=== PATIENT | female | born 1975 | race Caucasian/White ===

== ENCOUNTER 2024-05-29 18:09 | Inpatient (IN) | payer BC ==
[2024-05-29] MEDS ORDERED: Sodium Chloride 0.9% 1000 ML 1,000 ML ONE ×3 (19:57→23:47)
[2024-05-29] MEDS ORDERED: TYLENOL 325 MG ONE (19:57)
[2024-05-29] MEDS ORDERED: Zofran 4 MG/2 ML VIAL ONE (19:57)
[2024-05-29] MEDS: TYLENOL 325 MG PO ONE (19:58)
[2024-05-29] MEDS: Zofran 4 MG/2 ML VIAL IV ONE (19:59)
[2024-05-29] MEDS: Sodium Chloride 0.9% 1000 ML 1,000 ML IV STA ×3 (19:59→23:53)
[2024-05-29 20:10] LABS: Absolute Neutrophil Ct (ANC) 9.19 x10^3/uL (1.56-6.13); BASOPHIL % 0.2 % (0.1-1.2); Basophil (Absolute #) 0.02 x10^3/uL (0.01-0.08); Eosinophil % 0.2 % (0.7-5.8); Eosinophil (Absolute #) 0.02 x10^3/uL (0.04-0.36); Hematocrit 40.7 % (34.1-44.9); Hemoglobin 14.1 g/dL (11.2-15.7); IMMATURE GRAN # 0.05 x10^3u/L (0.001-0.031); IMMATURE GRAN % 0.5 % (0.001-0.429); Lymphocytes % 5.5 % (19.3-51.7); Mean Cell Volume 85.9 fL (79.4-94.8); Mean Corpuscular Hemoglobin 29.7 pg (25.6-32.2); Mean Corpuscular Hgb Concent. 34.6 g/dL (32.2-35.5); Mean Platelet Volume 9.8 fL (9.4-12.3); Monocyte (Absolute #) 0.99 x10^3/uL (0.24-0.86); Monocytes % 9.1 % (4.7-12.5); Neutrophil % 84.5 % (34.0-71.1); Platelet Count 189 x10^3/uL (182-369); Red Blood Count 4.74 x10^6/uL (3.93-5.22); Red Cell Distribution Width 13.1 % (11.7-14.4); White Blood Count 10.9 x10^3/uL (3.98-10.04)
[2024-05-29 20:22] LABS: ALBUMIN 4.4 g/dL (3.5-5.0); ANION GAP 14.7 MEQ/L (5-15); BILIRUBIN,TOTAL 0.7 mg/dL (0.2-1.3); Calcium 9.3 mg/dL (8.4-10.2); Creatinine 1 0.79 mg/dL (0.52-1.04); EST GLOMERULAR FILTRATION RATE 91.6 ML/MIN; Potassium 4.1 mmol/L (3.5-5.1); Total Protein 7.5 g/dL (6.3-8.2)
[2024-05-29 20:47] LABS: INFLUENZA A NEGATIVE (NEGATIVE); INFLUENZA B NEGATIVE (NEGATIVE); RESPIRATORY SYNCTIAL VIRUS NEGATIVE (NEGATIVE); SARS-CoV-2 Xpert Express NEGATIVE (NEGATIVE)
[2024-05-29 22:30] LABS: Appearance Clear (Clear); Bacteria Rare /HPF (None Seen); Bilirubin Negative (Negative); Blood Small (Negative); Epithelial Cells Few /HPF (None Seen); Glucose, Urine >=1000 mg/dL (Negative); Hyaline Casts NONE SEEN /LPF (0-2); Ketones Negative (Negative); Leukocyte Esterase Small (Negative); Nitrite Negative (Negative); Protein,Urine Dip 30 (Negative); Specific Gravity >=1.030 (1.005-1.030); Urobilinogen 0.2 mg/dL (0.2); WBC 21-50 /HPF (0-5)
--- NOTE | 2024-05-29 22:42 | XRAY ---
CLINICAL HISTORY: abdominal pain COMPARISON: - TECHNIQUE: Multiple contiguous axial images were obtained from the level of diaphragm to the pubis symphysis. This study was acquired after the IV administration of iodinated contrast material, given the patients indications for the examination. If IV contrast material had not been administered, the likelihood of detecting abnormalities relevant to the patients condition would have been substantially decreased. Coronal and sagittal reformatted images were generated and reviewed to improve anatomic localization and optimize lesion detection. CT scan was performed according to ALARA (as low as reasonable achievable). FINDINGS: The visualized lung bases reveals old calcified granuloma in the left lower lobe of the lung ABDOMEN/PELVIS: The liver is normal in size and attenuation. No focal liver lesions are seen. There is no intra or extrahepatic biliary ductal dilatation. Hepatic vasculature is patent. The gallbladder is unremarkable. The spleen reveals tiny foci of calcification. The pancreas, and adrenal glands are unremarkable. The kidneys are normal in size. Patchy wedged shaped hypoenhancing areas are seen in the mid and lower pole of the right kidney on delayed images with perinephric fat stranding. There is no hydronephrosis. A calculus measuring around 0.3 is seen in the right kidney. The ureters are normal in caliber and no ureteral calculi are seen. The bladder is normal in contour. No evidence of focal or diffuse bowel wall thickening or evidence of bowel obstruction is seen. No adenopathy or fluid collections are seen. The aorta shows atherosclerotic calcification Degenerative changes in the visualized spine. No aggressive appearing osseous lesions are identified. IMPRESSION: 1. Right non-obstructive renal calculus. 2. Patchy wedged shaped hypoenhancing areas are seen in the mid and lower pole of the right kidney on delayed images with perinephric fat stranding- raises possibility of infective etiology.Urine Analysis is advised Electronically Signed by: Christopher Sam MD. (05/29/2024 22:38:25 EDT)
--- NOTE | 2024-05-29 23:30 | ERPHSYRPT ---
- History of Present Illness Time Seen by Provider: 05/29/24 19:20 Source: patient Exam Limitations: clinical condition Patient Subjective Stated Complaint: pt states that she had the flu 2 weeks ago. pt states she has been hot and cold. pt states that she has body aches Triage Nursing Assessment: pt ambulated into the er; pt is axo x4; c/o fever; pt states 10/10 body aches; pt denies N/V/D; no respiratory distress present; skin pink, hot, dry; tachycardic Timing/Duration: today Severity: mild Associated Symptoms: nausea, chills, malaise Allergies/Adverse Reactions: No Known Drug Allergies Allergy (Unverified 05/29/24 19:31) Hx Tetanus, Diphtheria Vaccination/Date Given: Yes Hx Influenza Vaccination/Date Given: No Hx Pneumococcal Vaccination/Date Given: No Travel Risk - International Travel Have you traveled outside of the country in past 3 weeks: No - Emerging Infectious Disease Are you exhibiting symptoms associated with any current EIDs: Yes Symptoms: Fever, Headaches/Body Aches/ - Review of Systems Constitutional: Fever, Chills, Fatigue, Malaise, Weakness Ears, Nose, & Throat: No Symptoms Respiratory: No Symptoms Cardiac: No Symptoms Abdominal/Gastrointestinal: No Symptoms Genitourinary Symptoms: No Symptoms - Past Medical History Pertinent Past Medical History: Yes Neurological History: Stroke ENT History: No Pertinent History Cardiac History: Hypertension Respiratory History: No Pertinent History Endocrine Medical History: Diabetes Type II Musculoskeletal History: Arthritis GI Medical History: GERD History: No Pertinent History Psycho-Social History: No Pertinent History Female Reproductive Disorders: No Pertinent History - Past Surgical History Past Surgical History: Yes Neuro Surgical History: No Pertinent History Cardiac: No Pertinent History Respiratory: No Pertinent History Gastrointestinal: No Pertinent History Genitourinary: No Pertinent History Musculoskeletal: Orthopedic Surgery Female Surgical History: Tubal Ligation Other Surgical History: maria victoria knee - Female History Hx Now: No - Social History Smoking Status: Current every day smoker How long have you smoked: 33 year Exposure to second hand smoke: Yes Drug Use: none - Social Determinants of Health Will the patient participate in the screening: Yes Do you worry about a steady place to live?: No Do you have any problems with any of the following?: No known problems In the past 12 months,have you had to go without utilities?: No Transportation Issues: No Has anyone in your support network made you feel unsafe?: No Have you or anyone in your house had to go w/o enough food: No - Nursing Vital Signs Nursing Vital Signs: Initial Vital Signs Pulse Rate 115 H 05/29/24 19:31 Blood Pressure 108/66 05/29/24 19:31 O2 Sat by Pulse Oximetry 97 05/29/24 19:31 Pain Scale Pain Intensity 7 - Physical Exam General Appearance: no apparent distress Eye Exam: PERRL/EOMI Ears, Nose, Throat Exam: normal ENT inspection Neck Exam: normal inspection Respiratory Exam: normal breath sounds Cardiovascular Exam: regular rate/rhythm Gastrointestinal/Abdomen Exam: soft, normal bowel sounds Back Exam: CVA tenderness SpO2: 96 Ordered Tests: Active Orders 24 hr Category Date Time Status Up Ad Cindy TOLERATED Activity 05/30/24 00:02 Ordered Code Status Order ROUTINE Care 05/30/24 00:02 Ordered POCT Glucose Check ACHS Care 05/30/24 00:[address] in Observation ROUTINE Care 05/30/24 00:02 Ordered Consistent Carbohydrate Diet 1800 Calorie Diet 05/30/24 Breakfast Ordered ABDOMEN AND PELVIS W CONTRAST [CT] Stat Exams 05/29/24 19:49 Completed CHEST 1 VIEW (PORTABLE) Stat Exams 05/29/24 19:49 Taken CBC AM.LAB Lab 05/30/24 04:00 Ordered CBC W DIFF Stat Lab 05/29/24 20:07 Completed CMP AM.LAB Lab 05/30/24 04:00 Ordered CMP Stat Lab 05/29/24 20:07 Completed CULTURE,URINE Stat Lab 05/29/24 22:21 Received UA W/RFX UR CULTURE Stat Lab 05/29/24 22:21 Completed Medication Summary Generic Name Dose Route Start Last Admin Trade Name Freq PRN Reason Stop Dose Admin Sodium Chloride 1,000 mls @ 999 mls/hr 05/29/24 23:31 05/29/24 23:53 Sodium Chloride 0.9% 1000 Ml IV 05/30/24 00:31 999 mls/hr .Q1H1M STA Administration Ceftriaxone Sodium 2 gm in 100 mls @ 200 mls/hr 05/29/24 23:37 05/29/24 23:52 Rocephin 2 Gm/100 Ml Nacl IV 05/30/24 00:06 200 ml/hr STAT ONE 200 mls/hr Administration Discontinued Medications Generic Name Dose Route Start Last Admin Trade Name Freq PRN Reason Stop Dose Admin Acetaminophen 975 mg 05/29/24 19:48 05/29/24 19:58 Acetaminophen 325 Mg Tablet PO 05/29/24 19:49 975 mg STAT ONE Administration Acetaminophen Confirm 05/29/24 19:57 Acetaminophen 325 Mg Tablet Administered 05/29/24 19:58 Dose 975 mg .ROUTE .STK-MED ONE Sodium Chloride 1,000 mls @ 999 mls/hr 05/29/24 19:48 05/29/24 21:45 Sodium Chloride 0.9% 1000 Ml IV 05/29/24 20:48 Infused .Q1H1M STA Infusion Sodium Chloride 1,000 mls @ 999 mls/hr 05/29/24 19:50 05/29/24 22:04 Sodium Chloride 0.9% 1000 Ml IV 05/29/24 20:50 Infused .Q1H1M STA Infusion Sodium Chloride Confirm 05/29/24 19:57 Sodium Chloride 0.9% 1000 Ml Administered 05/29/24 19:58 Dose 1,000 mls @ ud .ROUTE .STK-MED ONE Sodium Chloride Confirm 05/29/24 20:57 Sodium Chloride 0.9% 1000 Ml Administered 05/29/24 20:58 Dose 1,000 mls @ ud .ROUTE .STK-MED ONE Sodium Chloride Confirm 05/29/24 23:47 Sodium Chloride 0.9% 1000 Ml Administered 05/29/24 23:48 Dose 1,000 mls @ ud .ROUTE .STK-MED ONE Ceftriaxone Sodium Confirm 05/29/24 23:47 Rocephin 2 Gm/100 Ml Nacl Administered 05/29/24 23:48 Dose 2 gm in 100 mls @ ud IV .STK-MED ONE Ondansetron HCl 4 mg 05/29/24 19:48 05/29/24 19:59 Ondansetron Hcl 4 Mg/2 Ml Vial IV 05/29/24 19:49 4 mg STAT ONE Administration Ondansetron HCl Confirm 05/29/24 19:57 Ondansetron Hcl 4 Mg/2 Ml Vial Administered 05/29/24 19:58 Dose 4 mg .ROUTE .STK-MED ONE Lab/Rad Data: Laboratory Result Diagrams 05/29/24 20:07 05/29/24 20:07 Laboratory Results 05/29/24 05/29/24 05/29/24 Range/Units 22:21 20:07 20:07 WBC (3.98-10.04) x10^3/uL RBC (3.93-5.22) x10^6/uL Hgb (11.2-15.7) g/dL Hct (34.1-44.9) % MCV (79.4-94.8) fL MCH (25.6-32.2) pg MCHC (32.2-35.5) g/dL RDW (11.7-14.4) % Plt Count (182-369) x10^3/uL MPV (9.4-12.3) fL Gran % (34.0-71.1) % Immature Gran % (Auto) (0.001-0.429) % Nucleat RBC Rel Count (0.00-0.2) % Eos # (Auto) (0.04-0.36) x10^3/uL Immature Gran # (Auto) (0.001-0.031) x10^3u/L Absolute Lymphs (auto) (1.18-3.74) x10^3/uL Absolute Monos (auto) (0.24-0.86) x10^3/uL Absolute Nucleated RBC (0.00-0.012) x10^3u/L Lymphocytes % (19.3-51.7) % Monocytes % (4.7-12.5) % Eosinophils % (0.7-5.8) % Basophils % (0.1-1.2) % Absolute Granulocytes (1.56-6.13) x10^3/uL Basophils # (0.01-0.08) x10^3/uL Sodium 135 (135-145) mmol/L Potassium 4.1 (3.5-5.1) mmol/L Chloride 101 (98-107) mmol/L Carbon Dioxide 24 (22-30) mmol/L Anion Gap 14.7 (5-15) MEQ/L BUN 19 H (7-17) mg/dL Creatinine 0.79 (0.52-1.04) mg/dL Estimated GFR 91.6 ML/MIN Glucose 122 H (74-106) mg/dL Calcium 9.3 (8.4-10.2) mg/dL Total Bilirubin 0.70 (0.2-1.3) mg/dL AST 27 (14-36) U/L ALT 22 (0-35) U/L Alkaline Phosphatase 84 (38-126) U/L Serum Total Protein 7.5 (6.3-8.2) g/dL Albumin 4.4 (3.5-5.0) g/dL Urine Color Yellow (Yellow) Urine Appearance Clear (Clear) Urine pH 7.0 (4.6-8.0) Ur Specific [place] >=1.030 A (1.005-1.030) Urine Protein 30 (Negative) Urine Glucose (UA) >=1000 A (Negative) mg/dL Urine Ketones Negative (Negative) Urine Blood Small A (Negative) Urine Nitrite Negative (Negative) Urine Bilirubin Negative (Negative) Urine Urobilinogen 0.2 (0.2) mg/dL Ur Leukocyte Esterase Small A (Negative) U Hyaline Cast (Auto) NONE SEEN (0-2) /LPF Urine Microscopic RBC 11-20 A (0-5) /HPF Urine Microscopic WBC 21-50 A (0-5) /HPF Ur Epithelial Cells Few (None Seen) /HPF Urine Bacteria Rare A (None Seen) /HPF Urine Culture Reflexed YES (NO) Influenza Type A Ag NEGATIVE (NEGATIVE) Influenza Type B Ag NEGATIVE (NEGATIVE) RSV (PCR) NEGATIVE (NEGATIVE) SARS-CoV-2 (PCR) NEGATIVE (NEGATIVE) 05/29/24 Range/Units 20:07 WBC 10.9 H (3.98-10.04) x10^3/uL RBC 4.74 (3.93-5.22) x10^6/uL Hgb 14.1 (11.2-15.7) g/dL Hct 40.7 (34.1-44.9) % MCV 85.9 (79.4-94.8) fL MCH 29.7 (25.6-32.2) pg MCHC 34.6 (32.2-35.5) g/dL RDW 13.1 (11.7-14.4) % Plt Count 189 (182-369) x10^3/uL MPV 9.8 (9.4-12.3) fL Gran % 84.5 H (34.0-71.1) % Immature Gran % (Auto) 0.5 H (0.001-0.429) % Nucleat RBC Rel Count 0.0 (0.00-0.2) % Eos # (Auto) 0.02 L (0.04-0.36) x10^3/uL Immature Gran # (Auto) 0.05 H (0.001-0.031) x10^3u/L Absolute Lymphs (auto) 0.60 L (1.18-3.74) x10^3/uL Absolute Monos (auto) 0.99 H (0.24-0.86) x10^3/uL Absolute Nucleated RBC 0.00 (0.00-0.012) x10^3u/L Lymphocytes % 5.5 L (19.3-51.7) % Monocytes % 9.1 (4.7-12.5) % Eosinophils % 0.2 L (0.7-5.8) % Basophils % 0.2 (0.1-1.2) % Absolute Granulocytes 9.19 H (1.56-6.13) x10^3/uL Basophils # 0.02 (0.01-0.08) x10^3/uL Sodium (135-145) mmol/L Potassium (3.5-5.1) mmol/L Chloride (98-107) mmol/L Carbon Dioxide (22-30) mmol/L Anion Gap (5-15) MEQ/L BUN (7-17) mg/dL Creatinine (0.52-1.04) mg/dL Estimated GFR ML/MIN Glucose (74-106) mg/dL Calcium (8.4-10.2) mg/dL Total Bilirubin (0.2-1.3) mg/dL AST (14-36) U/L ALT (0-35) U/L Alkaline Phosphatase (38-126) U/L Serum Total Protein (6.3-8.2) g/dL Albumin (3.5-5.0) g/dL Urine Color (Yellow) Urine Appearance (Clear) Urine pH (4.6-8.0) Ur Specific [place] (1.005-1.030) Urine Protein (Negative) Urine Glucose (UA) (Negative) mg/dL Urine Ketones (Negative) Urine Blood (Negative) Urine Nitrite (Negative) Urine Bilirubin (Negative) Urine Urobilinogen (0.2) mg/dL Ur Leukocyte Esterase (Negative) U Hyaline Cast (Auto) (0-2) /LPF Urine Microscopic RBC (0-5) /HPF Urine Microscopic WBC (0-5) /HPF Ur Epithelial Cells (None Seen) /HPF Urine Bacteria (None Seen) /HPF Urine Culture Reflexed (NO) Influenza Type A Ag (NEGATIVE) Influenza Type B Ag (NEGATIVE) RSV (PCR) (NEGATIVE) SARS-CoV-2 (PCR) (NEGATIVE) - Progress Progress Note: Patient was seen and evaluated for fever chills malaise and generalized weakness that has been getting worse for the past several days she was noted to have a fever with tachycardia she was given IV fluids and labs were obtained she was in itially complaining of abdominal pain CT of the abdomen pelvis was obtained this revealed 05/29/24 23:15 IMPRESSION: 1. Right non-obstructive renal calculus. 2. Patchy wedged shaped hypoenhancing areas are seen in the mid and lower pole of the right kidney on delayed images with perinephric fat stranding- raises possibility of infective etiology.Urine Analysis is advised Patient was updated with the results she was informed of the need for admission she is agreeable she will be given 2 g Rocephin for treatment of an early pyelonephritis and sirs Medical Desision Making - Independent Historian Additional History obtained from: Family - Discussion of managment Care discussed with:: hospitalist Agreed on:: decision to admit Will see patient: in hospital - Departure Departure Disposition: Observation Clinical Impression: Fever, SIRS (systemic inflammatory response syndrome), Pyelonephritis Condition: Stable Critical Care Time: Yes Critical Care Time(excluding separately billable procedures): Critical 30-74 mins Referrals: ELSA DE LEON PA [Primary Care Provider] - Follow up/PCP as directed
[2024-05-29] MEDS ORDERED: ROCEPHIN 2 GM/100 ML NACL 2 GM/100 ML IVPB IV ONE (23:47)
[2024-05-29] MEDS: ROCEPHIN 2 GM/100 ML NACL 2 GM/100 ML IVPB IV ONE (23:52)
[2024-05-30] MEDS ORDERED: HUMULIN R SQ PRN (00:02)
[2024-05-30] MEDS ORDERED: MORPHINE SULFATE 4 MG INJ ONE (00:38)
[2024-05-30] MEDS: MORPHINE SULFATE 4 MG INJ IV ONE (00:41)
[2024-05-30] MEDS: Sodium Chloride 0.9% 1000 ML 1,000 ML IV SCH (00:41)
--- NOTE | 2024-05-30 01:16 | PCM.HP ---
History of Present Illness - Chief Complaint Chief Complaint: acute pyelonephritis Date: 05/29/24 History of Present Illness: Ms. FRANCO is a 49 year old female with a past medical history significant for hypertension, diabetes and recent bout with influenza A who presents to the hospital with complaints of fever, chills and body aches with some persistent R sided back pain. She had been diagnosed with a UTI and treated with antibiotics a week ago. Initial labs were notable for an elevated WBC count of 10.9k. She was negative for flu/COVID/RSV but did have a CT scan chest/abd that demonstrated R pyelonephritis. No chest pain or shortness of breath. No nausea, vomiting or diarrhea. No dysuria, hematuria or urgency. She has been recommended for admission and is seen via telehealth where she is resting in bed, in no apparent distress. - Review of Systems Constitutional: Fever, Chills Eyes: No Vision Changes Ears, Nose, & Throat: No Sinus Drainage Respiratory: No Cough, No Orthopnea, No Short Of Breath Cardiac: No Chest Pain, No Edema, No Palpitations Abdominal/Gastrointestinal: Abdominal Pain, No Nausea, No Vomiting, No Diarrhea Genitourinary Symptoms: No Dysuria, No Frequency, No Hematuria Musculoskeletal: Arthralgias, Myalgias Skin: No Rash Neurological: No Headache Psychological: No Suicidal Ideations Endocrine: No Polyuria, No Polydipsia Medications & Allergies Allergies/Adverse Reactions: Allergies Allergy/AdvReac Type Severity Reaction Status Date / Time No Known Drug Allergies Allergy Unverified 05/29/24 19:31 - Past Medical History Past Medical History: Yes Neurological History: Stroke ENT History: No Pertinent History Cardiac History: Hypertension Respiratory History: No Pertinent History Endocrine Medical History: Diabetes Type II Musculoskelatal History: Arthritis GI Medical History: GERD History: No Pertinent History Pyscho-Social History: No Pertinent History Reproductive Disorders: No Pertinent History - Female History Are you now?: No - Past Surgical History Past Surgical History: Yes Neuro Surgical History: No Pertinent History Cardiac History: No Pertinent History Respiratory Surgery: No Pertinent History GI Surgical History: No Pertinent History Genitourinary Surgical Hx: No Pertinent History Musculskeletal Surgical Hx: Orthopedic Surgery Female Surgical History: Tubal Ligation Other Surgical History: maria victoria knee - Social History Smoking Status: Current every day smoker How long have you smoked: 33 year Exposure to second hand smoke: Yes Alcohol: None Drug Use: none - Social Determinants of Health Will the patient participate in the screening: Yes Do you worry about a steady place to live?: No Do you have any problems with any of the following?: No known problems In the past 12 months,have you had to go without utilities?: No Have you or anyone in your house had to go without enough: No Transportation Issues: No Has anyone in your support network made you feel unsafe?: No - Physical Exam Vital Signs: Vital Signs - 24 hr Temp Pulse Resp BP BP Pulse Ox 05/30/24 01:00 87 105/74 99 05/30/24 00:50 88 109/76 99 05/30/24 00:30 92 H 108/81 98 05/30/24 00:06 96 05/30/24 00:00 89 97/66 97 05/29/24 23:30 89 95/68 98 05/29/24 23:00 89 119/72 97 05/29/24 22:30 93 H 103/70 98 05/29/24 22:10 90 106/69 96 05/29/24 22:00 107 H 81/49 96 05/29/24 21:30 105 H 81/46 96 05/29/24 21:26 95 05/29/24 21:01 107 H 95 05/29/24 20:30 102 H 88/52 97 05/29/24 20:00 105 H 104/64 96 05/29/24 19:33 100.4 F 118 H 18 108/66 95 05/29/24 19:31 115 H 108/66 97 General Appearance: no apparent distress Neurologic Exam: cooperative Ears, Nose, Throat Exam: dry mucous membranes Neck Exam: supple Respiratory Exam: No respiratory distress Cardiovascular Exam: regular rate/rhythm Gastrointestinal/Abdomen Exam: soft Extremity Exam: No pedal edema, No swelling Skin Exam: normal color, No rash Results - Labs Lab/Micro Results: Lab Results-Last 24 Hours 05/29/24 05/29/24 05/29/24 Range/Units 20:07 20:07 20:07 WBC 10.9 H (3.98-10.04) x10^3/uL RBC 4.74 (3.93-5.22) x10^6/uL Hgb 14.1 (11.2-15.7) g/dL Hct 40.7 (34.1-44.9) % MCV 85.9 (79.4-94.8) fL MCH 29.7 (25.6-32.2) pg MCHC 34.6 (32.2-35.5) g/dL RDW 13.1 (11.7-14.4) % Plt Count 189 (182-369) x10^3/uL MPV 9.8 (9.4-12.3) fL Gran % 84.5 H (34.0-71.1) % Immature Gran % (Auto) 0.5 H (0.001-0.429) % Nucleat RBC Rel Count 0.0 (0.00-0.2) % Eos # (Auto) 0.02 L (0.04-0.36) x10^3/uL Immature Gran # (Auto) 0.05 H (0.001-0.031) x10^3u/L Absolute Lymphs (auto) 0.60 L (1.18-3.74) x10^3/uL Absolute Monos (auto) 0.99 H (0.24-0.86) x10^3/uL Absolute Nucleated RBC 0.00 (0.00-0.012) x10^3u/L Lymphocytes % 5.5 L (19.3-51.7) % Monocytes % 9.1 (4.7-12.5) % Eosinophils % 0.2 L (0.7-5.8) % Basophils % 0.2 (0.1-1.2) % Absolute Granulocytes 9.19 H (1.56-6.13) x10^3/uL Basophils # 0.02 (0.01-0.08) x10^3/uL Sodium 135 (135-145) mmol/L Potassium 4.1 (3.5-5.1) mmol/L Chloride 101 (98-107) mmol/L Carbon Dioxide 24 (22-30) mmol/L Anion Gap 14.7 (5-15) MEQ/L BUN 19 H (7-17) mg/dL Creatinine 0.79 (0.52-1.04) mg/dL Estimated GFR 91.6 ML/MIN Glucose 122 H (74-106) mg/dL Calcium 9.3 (8.4-10.2) mg/dL Total Bilirubin 0.70 (0.2-1.3) mg/dL AST 27 (14-36) U/L ALT 22 (0-35) U/L Alkaline Phosphatase 84 (38-126) U/L Serum Total Protein 7.5 (6.3-8.2) g/dL Albumin 4.4 (3.5-5.0) g/dL Urine Color (Yellow) Urine Appearance (Clear) Urine pH (4.6-8.0) Ur Specific [place] (1.005-1.030) Urine Protein (Negative) Urine Glucose (UA) (Negative) mg/dL Urine Ketones (Negative) Urine Blood (Negative) Urine Nitrite (Negative) Urine Bilirubin (Negative) Urine Urobilinogen (0.2) mg/dL Ur Leukocyte Esterase (Negative) U Hyaline Cast (Auto) (0-2) /LPF Urine Microscopic RBC (0-5) /HPF Urine Microscopic WBC (0-5) /HPF Ur Epithelial Cells (None Seen) /HPF Urine Bacteria (None Seen) /HPF Urine Culture Reflexed (NO) Influenza Type A Ag NEGATIVE (NEGATIVE) Influenza Type B Ag NEGATIVE (NEGATIVE) RSV (PCR) NEGATIVE (NEGATIVE) SARS-CoV-2 (PCR) NEGATIVE (NEGATIVE) 05/29/24 Range/Units 22:21 WBC (3.98-10.04) x10^3/uL RBC (3.93-5.22) x10^6/uL Hgb (11.2-15.7) g/dL Hct (34.1-44.9) % MCV (79.4-94.8) fL MCH (25.6-32.2) pg MCHC (32.2-35.5) g/dL RDW (11.7-14.4) % Plt Count (182-369) x10^3/uL MPV (9.4-12.3) fL Gran % (34.0-71.1) % Immature Gran % (Auto) (0.001-0.429) % Nucleat RBC Rel Count (0.00-0.2) % Eos # (Auto) (0.04-0.36) x10^3/uL Immature Gran # (Auto) (0.001-0.031) x10^3u/L Absolute Lymphs (auto) (1.18-3.74) x10^3/uL Absolute Monos (auto) (0.24-0.86) x10^3/uL Absolute Nucleated RBC (0.00-0.012) x10^3u/L Lymphocytes % (19.3-51.7) % Monocytes % (4.7-12.5) % Eosinophils % (0.7-5.8) % Basophils % (0.1-1.2) % Absolute Granulocytes (1.56-6.13) x10^3/uL Basophils # (0.01-0.08) x10^3/uL Sodium (135-145) mmol/L Potassium (3.5-5.1) mmol/L Chloride (98-107) mmol/L Carbon Dioxide (22-30) mmol/L Anion Gap (5-15) MEQ/L BUN (7-17) mg/dL Creatinine (0.52-1.04) mg/dL Estimated GFR ML/MIN Glucose (74-106) mg/dL Calcium (8.4-10.2) mg/dL Total Bilirubin (0.2-1.3) mg/dL AST (14-36) U/L ALT (0-35) U/L Alkaline Phosphatase (38-126) U/L Serum Total Protein (6.3-8.2) g/dL Albumin (3.5-5.0) g/dL Urine Color Yellow (Yellow) Urine Appearance Clear (Clear) Urine pH 7.0 (4.6-8.0) Ur Specific [place] >=1.030 A (1.005-1.030) Urine Protein 30 (Negative) Urine Glucose (UA) >=1000 A (Negative) mg/dL Urine Ketones Negative (Negative) Urine Blood Small A (Negative) Urine Nitrite Negative (Negative) Urine Bilirubin Negative (Negative) Urine Urobilinogen 0.2 (0.2) mg/dL Ur Leukocyte Esterase Small A (Negative) U Hyaline Cast (Auto) NONE SEEN (0-2) /LPF Urine Microscopic RBC 11-20 A (0-5) /HPF Urine Microscopic WBC 21-50 A (0-5) /HPF Ur Epithelial Cells Few (None Seen) /HPF Urine Bacteria Rare A (None Seen) /HPF Urine Culture Reflexed YES (NO) Influenza Type A Ag (NEGATIVE) Influenza Type B Ag (NEGATIVE) RSV (PCR) (NEGATIVE) SARS-CoV-2 (PCR) (NEGATIVE) - Radiology Impressions Radiology Exams & Impressions: Radiology Procedures Category Date Time Status ABDOMEN AND PELVIS W CONTRAST [CT] Stat Exams 05/29/24 19:49 Completed CHEST 1 VIEW (PORTABLE) Stat Exams 05/29/24 19:49 Taken Assessment/Plan (1) Pyelonephritis Current Visit: Yes Status: Acute Assessment & Plan: Abdominal pain with R sided pyelonephritis on CT scan 1. Admit to hospital 2. IVFs 3. Empiric antibiotics, f/u culture 4. DVT/GI prophylaxis 5. Pain control 6. Follow I/Os 7. Watch electrolytes, kidney function closely Code(s): N12 - TUBULO-INTERSTITIAL NEPHRITIS, NOT SPCF ACUTE OR CHRONIC (2) Type 2 diabetes mellitus with diabetic chronic kidney disease Current Visit: Yes Status: Acute Assessment & Plan: Diabetes with some proteinuria 1. ADA diet with FSBS qAC/HS 2. Check UPC 3. Monitor blood sugars Code(s): E11.22 - TYPE 2 DIABETES MELLITUS W DIABETIC CHRONIC KIDNEY DISEASE (3) Hypertensive chronic kidney disease with stage 1 through stage 4 chronic kid sheri disease, or unspecified chronic kidney disease Current Visit: Yes Status: Acute Assessment & Plan: Blood pressure under reasonable control 1. Continue bp meds 2. Low Na diet 3. Monitor blood pressure readings Code(s): I12.9 - HYPERTENSIVE CHRONIC KIDNEY DISEASE W STG 1-4/UNSP CHR KDNY (4) Influenza Current Visit: Yes Status: Acute Assessment & Plan: Recent bout with influenza, currently negative 1. Duonebs prn 2. Monitor O2 sats Code(s): J11.1 - FLU DUE TO UNIDENTIFIED INFLUENZA VIRUS W OTH RESP MANIFEST Telemedicine Encounter - Telemedicine Encounter Telemedicine Encounter: "The entirety of this encounter was performed via Telemedicine" This visit was performed using real-time audio and video connection between my location and thepatients locationwith the assistance of a surrogateat the patients location. Written or verbal consent was obtained from the patient/guardian to perform this visit usingsynchrWanna Migratetelemedicine technology. Any patient questions regarding the telemedicine interaction were answered.
[2024-05-30] MEDS: MORPHINE SULFATE 2 MG INJ IV PRN (01:55)
[2024-05-30] MEDS: TYLENOL 325 MG PO PRN (03:56)
[2024-05-30 05:27] LABS: Absolute Neutrophil Ct (ANC) 8.91 x10^3/uL (1.56-6.13); BASOPHIL % 0.1 % (0.1-1.2); Basophil (Absolute #) 0.01 x10^3/uL (0.01-0.08); Eosinophil % 0.2 % (0.7-5.8); Eosinophil (Absolute #) 0.02 x10^3/uL (0.04-0.36); Hematocrit 35.9 % (34.1-44.9); Hemoglobin 12.1 g/dL (11.2-15.7); IMMATURE GRAN # 0.08 x10^3u/L (0.001-0.031); IMMATURE GRAN % 0.7 % (0.001-0.429); Lymphocyte (Absolute #) 0.62 x10^3/uL (1.18-3.74); Lymphocytes % 5.8 % (19.3-51.7); Mean Cell Volume 88.2 fL (79.4-94.8); Mean Corpuscular Hemoglobin 29.7 pg (25.6-32.2); Mean Corpuscular Hgb Concent. 33.7 g/dL (32.2-35.5); Mean Platelet Volume 10.1 fL (9.4-12.3); Monocyte (Absolute #) 1.07 x10^3/uL (0.24-0.86); Neutrophil % 83.2 % (34.0-71.1); Platelet Count 160 x10^3/uL (182-369); Red Blood Count 4.07 x10^6/uL (3.93-5.22); Red Cell Distribution Width 13.6 % (11.7-14.4); White Blood Count 10.7 x10^3/uL (3.98-10.04)
[2024-05-30 05:48] LABS: ALBUMIN 3.4 g/dL (3.5-5.0); ANION GAP 12.7 MEQ/L (5-15); BILIRUBIN,TOTAL 0.7 mg/dL (0.2-1.3); Calcium 8.3 mg/dL (8.4-10.2); Creatinine 1 0.75 mg/dL (0.52-1.04); EST GLOMERULAR FILTRATION RATE 97.5 ML/MIN; Potassium 3.6 mmol/L (3.5-5.1)
--- NOTE | 2024-05-30 08:43 | XRAY ---
Indication: Fever. Comparison: None Portable chest demonstrates normal heart and lungs. Bony thorax intact with osteopenia and mild degenerative changes. No acute findings.
[2024-05-30] MEDS: HEPARIN 5000 UNITS/0.5 ML (HIGH RISK MED) SQ SCH (10:04)
[2024-05-30] MEDS: Protonix 40MG Tablet PO SCH (10:04)
--- NOTE | 2024-05-30 13:09 | PCM.NOTE ---
Date and Time: 05/30/24 1304 Subjective Assessment: 05/30/24 Ms. De Paz is a 49-year-old female with a medical history of hypertension, diabetes, and a recent bout of influenza A, who presented to the hospital with complaints of fever, chills, body aches, and persistent right-sided back pain. She had been diagnosed with a UTI and treated with antibiotics a week prior. Initial labs revealed an elevated WBC count of 10.9k. She tested negative for flu, COVID, and RSV, but a CT scan of the chest and abdomen showed right-sided pyelonephritis. She denied chest pain, shortness of breath, nausea, vomiting, diarrhea, dysuria, hematuria, or urgency. Today she is resting in bed, in no apparent distress. She reported feeling unwell with a temperature of 103.7F at 0357. Her WBC count had slightly improved to 10.7k, but she continued to experience right-sided back pain. She was continued on Rocephin for acute pyelonephritis. - Review of Systems Constitutional: Fever, Fatigue, Malaise, No Chills Eyes: No Symptoms Ears, Nose, & Throat: No Symptoms Respiratory: No Cough, No Short Of Breath Cardiac: No Chest Pain, No Edema, No Syncope Abdominal/Gastrointestinal: No Abdominal Pain, No Nausea, No Vomiting, No Diarrhea Genitourinary Symptoms: No Dysuria Musculoskeletal: Back Pain, No Neck Pain Skin: No Rash Neurological: No Dizziness, No Focal Weakness, No Sensory Changes Psychological: No Symptoms Endocrine: No Symptoms Hematologic/Lymphatic: No Symptoms Immunological/Allergic: No Symptoms Objective Exam General Appearance: no apparent distress, alert Neurologic Exam: alert, oriented x 3, cooperative, normal mood/affect, nml cerebellar function, sensation nml, No motor deficits Skin Exam: normal color, warm, dry Eye Exam: PERRL, EOMI, eyes nml inspection Ears, Nose, Throat Exam: normal ENT inspection, pharynx normal, moist mucous membranes Neck Exam: normal inspection, non-tender, supple, full range of motion Respiratory Exam: normal breath sounds, lungs clear, No respiratory distress Cardiovascular Exam: regular rate/rhythm, normal heart sounds Gastrointestinal/Abdomen Exam: soft, No tenderness, No mass Extremity Exam: normal inspection, normal range of motion Back Exam: normal inspection, normal range of motion, No CVA tenderness, No vertebral tenderness Pelvic Exam: deferred Rectal Exam: deferred Objective Data Vital Signs: Vital Signs - 24 hr Temp Pulse Resp BP BP Pulse Ox 05/30/24 11:32 97.8 F 82 20 101/70 95 05/30/24 08:17 98.3 F 99 H 22 79/49 93 L 05/30/24 06:29 99.7 F 05/30/24 03:57 103.7 F 119 H 20 126/69 97 05/30/24 01:36 98.2 F 90 18 102/59 98 05/30/24 01:00 87 105/74 99 05/30/24 00:50 88 109/76 99 05/30/24 00:30 92 H 108/81 98 05/30/24 00:06 96 05/30/24 00:00 89 97/66 97 05/29/24 23:30 89 95/68 98 05/29/24 23:00 89 119/72 97 05/29/24 22:30 93 H 103/70 98 05/29/24 22:10 90 106/69 96 05/29/24 22:00 107 H 81/49 96 05/29/24 21:30 105 H 81/46 96 05/29/24 21:26 95 05/29/24 21:01 107 H 95 05/29/24 20:30 102 H 88/52 97 05/29/24 20:00 105 H 104/64 96 05/29/24 19:33 100.4 F 118 H 18 108/66 95 05/29/24 19:31 115 H 108/66 97 Pain Assessment - Last Documented Pain Intensity 8 Pain Scale Used 0-10 Pain Scale Intake and Output: Intake & Output 05/28/24 05/29/24 05/30/24 05/31/24 10:59 11:59 11:59 11:59 Intake Total 120 120 Output Total 1200 400 Balance -1080 -280 Weight 62.8 kg Lab Results: Lab Results-Last 24 Hours 05/29/24 05/29/24 05/29/24 Range/Units 20:07 20:07 20:07 WBC 10.9 H (3.98-10.04) x10^3/uL RBC 4.74 (3.93-5.22) x10^6/uL Hgb 14.1 (11.2-15.7) g/dL Hct 40.7 (34.1-44.9) % MCV 85.9 (79.4-94.8) fL MCH 29.7 (25.6-32.2) pg MCHC 34.6 (32.2-35.5) g/dL RDW 13.1 (11.7-14.4) % Plt Count 189 (182-369) x10^3/uL MPV 9.8 (9.4-12.3) fL Gran % 84.5 H (34.0-71.1) % Immature Gran % (Auto) 0.5 H (0.001-0.429) % Nucleat RBC Rel Count 0.0 (0.00-0.2) % Eos # (Auto) 0.02 L (0.04-0.36) x10^3/uL Immature Gran # (Auto) 0.05 H (0.001-0.031) x10^3u/L Absolute Lymphs (auto) 0.60 L (1.18-3.74) x10^3/uL Absolute Monos (auto) 0.99 H (0.24-0.86) x10^3/uL Absolute Nucleated RBC 0.00 (0.00-0.012) x10^3u/L Lymphocytes % 5.5 L (19.3-51.7) % Monocytes % 9.1 (4.7-12.5) % Eosinophils % 0.2 L (0.7-5.8) % Basophils % 0.2 (0.1-1.2) % Absolute Granulocytes 9.19 H (1.56-6.13) x10^3/uL Basophils # 0.02 (0.01-0.08) x10^3/uL Sodium 135 (135-145) mmol/L Potassium 4.1 (3.5-5.1) mmol/L Chloride 101 (98-107) mmol/L Carbon Dioxide 24 (22-30) mmol/L Anion Gap 14.7 (5-15) MEQ/L BUN 19 H (7-17) mg/dL Creatinine 0.79 (0.52-1.04) mg/dL Estimated GFR 91.6 ML/MIN Glucose 122 H (74-106) mg/dL POC Glucometer (74 to 106) mg/dL Calcium 9.3 (8.4-10.2) mg/dL Total Bilirubin 0.70 (0.2-1.3) mg/dL AST 27 (14-36) U/L ALT 22 (0-35) U/L Alkaline Phosphatase 84 (38-126) U/L Serum Total Protein 7.5 (6.3-8.2) g/dL Albumin 4.4 (3.5-5.0) g/dL Urine Color (Yellow) Urine Appearance (Clear) Urine pH (4.6-8.0) Ur Specific [place] (1.005-1.030) Urine Protein (Negative) Urine Glucose (UA) (Negative) mg/dL Urine Ketones (Negative) Urine Blood (Negative) Urine Nitrite (Negative) Urine Bilirubin (Negative) Urine Urobilinogen (0.2) mg/dL Ur Leukocyte Esterase (Negative) U Hyaline Cast (Auto) (0-2) /LPF Urine Microscopic RBC (0-5) /HPF Urine Microscopic WBC (0-5) /HPF Ur Epithelial Cells (None Seen) /HPF Urine Bacteria (None Seen) /HPF Urine Culture Reflexed (NO) Influenza Type A Ag NEGATIVE (NEGATIVE) Influenza Type B Ag NEGATIVE (NEGATIVE) RSV (PCR) NEGATIVE (NEGATIVE) SARS-CoV-2 (PCR) NEGATIVE (NEGATIVE) 05/29/24 05/30/24 05/30/24 Range/Units 22:21 05:19 05:19 WBC 10.7 H (3.98-10.04) x10^3/uL RBC 4.07 (3.93-5.22) x10^6/uL Hgb 12.1 (11.2-15.7) g/dL Hct 35.9 (34.1-44.9) % MCV 88.2 (79.4-94.8) fL MCH 29.7 (25.6-32.2) pg MCHC 33.7 (32.2-35.5) g/dL RDW 13.6 (11.7-14.4) % Plt Count 160 L (182-369) x10^3/uL MPV 10.1 (9.4-12.3) fL Gran % 83.2 H (34.0-71.1) % Immature Gran % (Auto) 0.7 H (0.001-0.429) % Nucleat RBC Rel Count 0.0 (0.00-0.2) % Eos # (Auto) 0.02 L (0.04-0.36) x10^3/uL Immature Gran # (Auto) 0.08 H (0.001-0.031) x10^3u/L Absolute Lymphs (auto) 0.62 L (1.18-3.74) x10^3/uL Absolute Monos (auto) 1.07 H (0.24-0.86) x10^3/uL Absolute Nucleated RBC 0.00 (0.00-0.012) x10^3u/L Lymphocytes % 5.8 L (19.3-51.7) % Monocytes % 10.0 (4.7-12.5) % Eosinophils % 0.2 L (0.7-5.8) % Basophils % 0.1 (0.1-1.2) % Absolute Granulocytes 8.91 H (1.56-6.13) x10^3/uL Basophils # 0.01 (0.01-0.08) x10^3/uL Sodium 137 (135-145) mmol/L Potassium 3.6 (3.5-5.1) mmol/L Chloride 106 (98-107) mmol/L Carbon Dioxide 22 (22-30) mmol/L Anion Gap 12.7 (5-15) MEQ/L BUN 12 (7-17) mg/dL Creatinine 0.75 (0.52-1.04) mg/dL Estimated GFR 97.5 ML/MIN Glucose 91 (74-106) mg/dL POC Glucometer (74 to 106) mg/dL Calcium 8.3 L (8.4-10.2) mg/dL Total Bilirubin 0.70 (0.2-1.3) mg/dL AST 78 H (14-36) U/L ALT 40 H (0-35) U/L Alkaline Phosphatase 145 H (38-126) U/L Serum Total Protein 6.0 L (6.3-8.2) g/dL Albumin 3.4 L (3.5-5.0) g/dL Urine Color Yellow (Yellow) Urine Appearance Clear (Clear) Urine pH 7.0 (4.6-8.0) Ur Specific [place] >=1.030 A (1.005-1.030) Urine Protein 30 (Negative) Urine Glucose (UA) >=1000 A (Negative) mg/dL Urine Ketones Negative (Negative) Urine Blood Small A (Negative) Urine Nitrite Negative (Negative) Urine Bilirubin Negative (Negative) Urine Urobilinogen 0.2 (0.2) mg/dL Ur Leukocyte Esterase Small A (Negative) U Hyaline Cast (Auto) NONE SEEN (0-2) /LPF Urine Microscopic RBC 11-20 A (0-5) /HPF Urine Microscopic WBC 21-50 A (0-5) /HPF Ur Epithelial Cells Few (None Seen) /HPF Urine Bacteria Rare A (None Seen) /HPF Urine Culture Reflexed YES (NO) Influenza Type A Ag (NEGATIVE) Influenza Type B Ag (NEGATIVE) RSV (PCR) (NEGATIVE) SARS-CoV-2 (PCR) (NEGATIVE) 05/30/24 05/30/24 Range/Units 07:12 11:01 WBC (3.98-10.04) x10^3/uL RBC (3.93-5.22) x10^6/uL Hgb (11.2-15.7) g/dL Hct (34.1-44.9) % MCV (79.4-94.8) fL MCH (25.6-32.2) pg MCHC (32.2-35.5) g/dL RDW (11.7-14.4) % Plt Count (182-369) x10^3/uL MPV (9.4-12.3) fL Gran % (34.0-71.1) % Immature Gran % (Auto) (0.001-0.429) % Nucleat RBC Rel Count (0.00-0.2) % Eos # (Auto) (0.04-0.36) x10^3/uL Immature Gran # (Auto) (0.001-0.031) x10^3u/L Absolute Lymphs (auto) (1.18-3.74) x10^3/uL Absolute Monos (auto) (0.24-0.86) x10^3/uL Absolute Nucleated RBC (0.00-0.012) x10^3u/L Lymphocytes % (19.3-51.7) % Monocytes % (4.7-12.5) % Eosinophils % (0.7-5.8) % Basophils % (0.1-1.2) % Absolute Granulocytes (1.56-6.13) x10^3/uL Basophils # (0.01-0.08) x10^3/uL Sodium (135-145) mmol/L Potassium (3.5-5.1) mmol/L Chloride (98-107) mmol/L Carbon Dioxide (22-30) mmol/L Anion Gap (5-15) MEQ/L BUN (7-17) mg/dL Creatinine (0.52-1.04) mg/dL Estimated GFR ML/MIN Glucose (74-106) mg/dL POC Glucometer 81 108 H (74 to 106) mg/dL Calcium (8.4-10.2) mg/dL Total Bilirubin (0.2-1.3) mg/dL AST (14-36) U/L ALT (0-35) U/L Alkaline Phosphatase (38-126) U/L Serum Total Protein (6.3-8.2) g/dL Albumin (3.5-5.0) g/dL Urine Color (Yellow) Urine Appearance (Clear) Urine pH (4.6-8.0) Ur Specific [place] (1.005-1.030) Urine Protein (Negative) Urine Glucose (UA) (Negative) mg/dL Urine Ketones (Negative) Urine Blood (Negative) Urine Nitrite (Negative) Urine Bilirubin (Negative) Urine Urobilinogen (0.2) mg/dL Ur Leukocyte Esterase (Negative) U Hyaline Cast (Auto) (0-2) /LPF Urine Microscopic RBC (0-5) /HPF Urine Microscopic WBC (0-5) /HPF Ur Epithelial Cells (None Seen) /HPF Urine Bacteria (None Seen) /HPF Urine Culture Reflexed (NO) Influenza Type A Ag (NEGATIVE) Influenza Type B Ag (NEGATIVE) RSV (PCR) (NEGATIVE) SARS-CoV-2 (PCR) (NEGATIVE) Radiology Exams: Radiology Procedures Category Date Time Status ABDOMEN AND PELVIS W CONTRAST [CT] Stat Exams 05/29/24 19:49 Completed CHEST 1 VIEW (PORTABLE) Stat Exams 05/29/24 19:49 Completed Assessment/Plan (1) Pyelonephritis Current Visit: Yes Status: Acute Assessment & Plan: - Ceftriaxone - pain control- morphine and tylenol - IVF - CBC, CMP reviewed Code(s): N12 - TUBULO-INTERSTITIAL NEPHRITIS, NOT SPCF ACUTE OR CHRONIC (2) Hypertensive chronic kidney disease with stage 1 through stage 4 chronic kidney disease, or unspecified chronic kidney disease Current Visit: Yes Status: Acute Assessment & Plan: - at baseline renal function - CMP reviewed Code(s): I12.9 - HYPERTENSIVE CHRONIC KIDNEY DISEASE W STG 1-4/UNSP CHR KDNY (3) Influenza Current Visit: Yes Status: Acute Code(s): J11.1 - FLU DUE TO UNIDENTIFIED INFLUENZA VIRUS W OTH RESP MANIFEST (4) Type 2 diabetes mellitus with diabetic chronic kidney disease Current Visit: Yes Status: Acute Assessment & Plan: Diabetes with some proteinuria - ADA diet with FSBS qAC/HS -Monitor blood sugars - A1C- pending Code(s): E11.22 - TYPE 2 DIABETES MELLITUS W DIABETIC CHRONIC KIDNEY DISEASE (5) Fever Current Visit: Yes Status: Acute Assessment & Plan: - temp 103.7 at 0357 - Blood cultures x2 - Tylenol PRN VTE: Heparin PPI: Protonix Next of KIN: Spouse Haroldo [phone] D/C plan: 1-2 days Code status: Full Code(s): R50.9 - FEVER, UNSPECIFIED
[2024-05-30] MEDS: ROCEPHIN 2 GM/100 ML NACL 2 GM/100 ML IVPB IV SCH (22:55)
[2024-05-30 23:34] LABS: Appearance Clear (Clear); Bacteria None Seen /HPF (None Seen); Bilirubin Negative (Negative); Blood Small (Negative); Epithelial Cells Few /HPF (None Seen); Glucose, Urine >=1000 mg/dL (Negative); Hyaline Casts NONE SEEN /LPF (0-2); Ketones Negative (Negative); Leukocyte Esterase Negative (Negative); Nitrite Negative (Negative); Ph 6.5 (4.6-8.0); Protein,Urine Dip 100 (Negative)
[2024-05-30 23:35] LABS: CREATININE,URINE RANDOM 61.9 MG/DL
[2024-05-31 05:17] LABS: Hematocrit 35.9 % (34.1-44.9); Hemoglobin 11.9 g/dL (11.2-15.7); Mean Cell Volume 88.2 fL (79.4-94.8); Mean Corpuscular Hemoglobin 29.2 pg (25.6-32.2); Mean Corpuscular Hgb Concent. 33.1 g/dL (32.2-35.5); Platelet Count 144 x10^3/uL (182-369); Red Blood Count 4.07 x10^6/uL (3.93-5.22); Red Cell Distribution Width 13.4 % (11.7-14.4); White Blood Count 11.6 x10^3/uL (3.98-10.04)
[2024-05-31 05:56] LABS: ALBUMIN 3.3 g/dL (3.5-5.0); ANION GAP 12.2 MEQ/L (5-15); BILIRUBIN,TOTAL 0.6 mg/dL (0.2-1.3); Calcium 8.8 mg/dL (8.4-10.2); Creatinine 1 0.71 mg/dL (0.52-1.04); EST GLOMERULAR FILTRATION RATE 104.2 ML/MIN; Potassium 3.7 mmol/L (3.5-5.1); Total Protein 5.9 g/dL (6.3-8.2)
[2024-05-31] MEDS: TYLENOL 325 MG PO PRN (09:23)
[2024-05-31] MEDS ORDERED: Flonase NASAL NS SCH (10:12)
[2024-05-31] MEDS ORDERED: MEDICATION INTERVENTION MC SCH (10:45)
[2024-05-31] MEDS: hydroDIURIL 25 MG PO SCH (11:38)
[2024-05-31] MEDS: Vitamin B-12 500 MCG PO SCH (11:38)
[2024-05-31] MEDS: NORVASC 5 MG PO SCH (11:39)
[2024-05-31] MEDS: Aldactone 25 MG PO SCH (11:39)
[2024-05-31] MEDS: FOLATE 1 MG PO SCH (11:39)
[2024-05-31] MEDS: Flonase NASAL NS SCH (12:09)
--- NOTE | 2024-05-31 12:11 | PCM.NOTE ---
Date and Time: 05/31/24 1206 Subjective Assessment: 05/30/24 Ms. De Paz is a 49-year-old female with a medical history of hypertension, diabetes, and a recent bout of influenza A, who presented to the hospital with complaints of fever, chills, body aches, and persistent right-sided back pain. She had been diagnosed with a UTI and treated with antibiotics a week prior. Initial labs revealed an elevated WBC count of 10.9k. She tested negative for flu, COVID, and RSV, but a CT scan of the chest and abdomen showed right-sided pyelonephritis. She denied chest pain, shortness of breath, nausea, vomiting, diarrhea, dysuria, hematuria, or urgency. Today she is resting in bed, in no apparent distress. She reported feeling unwell with a temperature of 103.7F at 0357. Her WBC count had slightly improved to 10.7k, but she continued to experience right-sided back pain. She was continued on Rocephin for acute pyelonephritis. 05/31/24 Pt resting in bed. She continues to not feel well today. She has had a temp of 99 all night. Urine culture gram negative and sensitivity pending. BC x2 pending. WBC up at 11.6. Continue ceftriaxone for UTI. Pt c/o right ear pain and appears to have sinus pressure so allergy medication and flonase started. Continue IVF. She continues to c/O right lower back pain in region of kidney. She denies CP, SOB, abd. pain, N/V/D. - Review of Systems Constitutional: Fatigue, Malaise, No Fever, No Chills Eyes: No Symptoms Ears, Nose, & Throat: No Symptoms, Ear Pain (Right) Respiratory: No Cough, No Short Of Breath Cardiac: No Chest Pain, No Edema, No Syncope Abdominal/Gastrointestinal: No Abdominal Pain, No Nausea, No Vomiting, No Diarrhea Genitourinary Symptoms: No Dysuria Musculoskeletal: Back Pain, No Neck Pain Skin: No Rash Neurological: No Dizziness, No Focal Weakness, No Sensory Changes Psychological: No Symptoms Endocrine: No Symptoms Hematologic/Lymphatic: No Symptoms Immunological/Allergic: No Symptoms Objective Exam General Appearance: no apparent distress, alert Neurologic Exam: alert, oriented x 3, cooperative, normal mood/affect, nml cerebellar function, sensation nml, No motor deficits Skin Exam: normal color, warm, dry Eye Exam: PERRL, EOMI, eyes nml inspection Ears, Nose, Throat Exam: normal ENT inspection, pharynx normal, moist mucous membranes Neck Exam: normal inspection, non-tender, supple, full range of motion Respiratory Exam: normal breath sounds, lungs clear, No respiratory distress Cardiovascular Exam: regular rate/rhythm, normal heart sounds Gastrointestinal/Abdomen Exam: soft, No tenderness, No mass Extremity Exam: normal inspection, normal range of motion Back Exam: normal inspection, normal range of motion, No CVA tenderness, No vertebral tenderness Pelvic Exam: deferred Rectal Exam: deferred Objective Data Vital Signs: Vital Signs - 24 hr Temp Pulse Resp BP Pulse Ox 05/31/24 06:00 98 F 75 16 98/60 99 05/31/24 02:00 99 F 102 H 20 98/52 94 L 05/30/24 20:18 99.3 F 98 H 18 96/60 93 L 05/30/24 17:06 98.7 F 97 H 20 88/54 94 L Pain Assessment - Last Documented Pain Intensity 8 Pain Scale Used 0-10 Pain Scale Intake and Output: Intake & Output 05/29/24 05/30/24 05/31/24 06/01/24 11:59 11:59 11:59 11:59 Intake Total 120 840 Output Total 1200 1300 Balance -1080 -460 Weight 62.8 kg Lab Results: Lab Results-Last 24 Hours 05/30/24 05/30/24 05/30/24 Range/Units 16:54 20:12 23:00 WBC (3.98-10.04) x10^3/uL RBC (3.93-5.22) x10^6/uL Hgb (11.2-15.7) g/dL Hct (34.1-44.9) % MCV (79.4-94.8) fL MCH (25.6-32.2) pg MCHC (32.2-35.5) g/dL RDW (11.7-14.4) % Plt Count (182-369) x10^3/uL MPV (9.4-12.3) fL Sodium (135-145) mmol/L Potassium (3.5-5.1) mmol/L Chloride (98-107) mmol/L Carbon Dioxide (22-30) mmol/L Anion Gap (5-15) MEQ/L BUN (7-17) mg/dL Creatinine (0.52-1.04) mg/dL Estimated GFR ML/MIN Glucose (74-106) mg/dL POC Glucometer 110 H 108 H (74 to 106) mg/dL Hemoglobin A1c (4.5-6.0) % Calcium (8.4-10.2) mg/dL Total Bilirubin (0.2-1.3) mg/dL AST (14-36) U/L ALT (0-35) U/L Alkaline Phosphatase (38-126) U/L Serum Total Protein (6.3-8.2) g/dL Albumin (3.5-5.0) g/dL Urine Color Yellow (Yellow) Urine Appearance Clear (Clear) Urine pH 6.5 (4.6-8.0) Ur Specific [place] 1.020 (1.005-1.030) Urine Protein 100 A (Negative) Urine Glucose (UA) >=1000 A (Negative) mg/dL Urine Ketones Negative (Negative) Urine Blood Small A (Negative) Urine Nitrite Negative (Negative) Urine Bilirubin Negative (Negative) Urine Urobilinogen 1.0 A (0.2) mg/dL Ur Leukocyte Esterase Negative (Negative) U Hyaline Cast (Auto) NONE SEEN (0-2) /LPF Urine Microscopic RBC 6-10 A (0-5) /HPF Urine Microscopic WBC 6-10 A (0-5) /HPF Ur Epithelial Cells Few (None Seen) /HPF Urine Bacteria None Seen (None Seen) /HPF Urine Culture Reflexed YES (NO) Ur Random Creatinine MG/DL U Random Total Protein (0-12) mg/dL 05/30/24 05/31/24 05/31/24 Range/Units 23:00 04:50 04:50 WBC 11.6 H (3.98-10.04) x10^3/uL RBC 4.07 (3.93-5.22) x10^6/uL Hgb 11.9 (11.2-15.7) g/dL Hct 35.9 (34.1-44.9) % MCV 88.2 (79.4-94.8) fL MCH 29.2 (25.6-32.2) pg MCHC 33.1 (32.2-35.5) g/dL RDW 13.4 (11.7-14.4) % Plt Count 144 L (182-369) x10^3/uL MPV 10.0 (9.4-12.3) fL Sodium (135-145) mmol/L Potassium (3.5-5.1) mmol/L Chloride (98-107) mmol/L Carbon Dioxide (22-30) mmol/L Anion Gap (5-15) MEQ/L BUN (7-17) mg/dL Creatinine (0.52-1.04) mg/dL Estimated GFR ML/MIN Glucose (74-106) mg/dL POC Glucometer (74 to 106) mg/dL Hemoglobin A1c 5.48 (4.5-6.0) % Calcium (8.4-10.2) mg/dL Total Bilirubin (0.2-1.3) mg/dL AST (14-36) U/L ALT (0-35) U/L Alkaline Phosphatase (38-126) U/L Serum Total Protein (6.3-8.2) g/dL Albumin (3.5-5.0) g/dL Urine Color (Yellow) Urine Appearance (Clear) Urine pH (4.6-8.0) Ur Specific [place] (1.005-1.030) Urine Protein (Negative) Urine Glucose (UA) (Negative) mg/dL Urine Ketones (Negative) Urine Blood (Negative) Urine Nitrite (Negative) Urine Bilirubin (Negative) Urine Urobilinogen (0.2) mg/dL Ur Leukocyte Esterase (Negative) U Hyaline Cast (Auto) (0-2) /LPF Urine Microscopic RBC (0-5) /HPF Urine Microscopic WBC (0-5) /HPF Ur Epithelial Cells (None Seen) /HPF Urine Bacteria (None Seen) /HPF Urine Culture Reflexed (NO) Ur Random Creatinine 61.9 MG/DL U Random Total Protein 95 H (0-12) mg/dL 05/31/24 05/31/24 05/31/24 Range/Units 04:50 07:41 11:35 WBC (3.98-10.04) x10^3/uL RBC (3.93-5.22) x10^6/uL Hgb (11.2-15.7) g/dL Hct (34.1-44.9) % MCV (79.4-94.8) fL MCH (25.6-32.2) pg MCHC (32.2-35.5) g/dL RDW (11.7-14.4) % Plt Count (182-369) x10^3/uL MPV (9.4-12.3) fL Sodium 139 (135-145) mmol/L Potassium 3.7 (3.5-5.1) mmol/L Chloride 107 (98-107) mmol/L Carbon Dioxide 23 (22-30) mmol/L Anion Gap 12.2 (5-15) MEQ/L BUN 11 (7-17) mg/dL Creatinine 0.71 (0.52-1.04) mg/dL Estimated GFR 104.2 ML/MIN Glucose 98 (74-106) mg/dL POC Glucometer 86 80 (74 to 106) mg/dL Hemoglobin A1c (4.5-6.0) % Calcium 8.8 (8.4-10.2) mg/dL Total Bilirubin 0.60 (0.2-1.3) mg/dL AST 33 (14-36) U/L ALT 29 (0-35) U/L Alkaline Phosphatase 106 (38-126) U/L Serum Total Protein 5.9 L (6.3-8.2) g/dL Albumin 3.3 L (3.5-5.0) g/dL Urine Color (Yellow) Urine Appearance (Clear) Urine pH (4.6-8.0) Ur Specific [place] (1.005-1.030) Urine Protein (Negative) Urine Glucose (UA) (Negative) mg/dL Urine Ketones (Negative) Urine Blood (Negative) Urine Nitrite (Negative) Urine Bilirubin (Negative) Urine Urobilinogen (0.2) mg/dL Ur Leukocyte Esterase (Negative) U Hyaline Cast (Auto) (0-2) /LPF Urine Microscopic RBC (0-5) /HPF Urine Microscopic WBC (0-5) /HPF Ur Epithelial Cells (None Seen) /HPF Urine Bacteria (None Seen) /HPF Urine Culture Reflexed (NO) Ur Random Creatinine MG/DL U Random Total Protein (0-12) mg/dL Radiology Exams: Radiology Procedures Category Date Time Status ABDOMEN AND PELVIS W CONTRAST [CT] Stat Exams 05/29/24 19:49 Completed CHEST 1 VIEW (PORTABLE) Stat Exams 05/29/24 19:49 Completed Assessment/Plan (1) Pyelonephritis Current Visit: Yes Status: Acute Code(s): N12 - TUBULO-INTERSTITIAL NEPHRITIS, NOT SPCF ACUTE OR CHRONIC (2) Hypertensive chronic kidney disease with stage 1 through stage 4 chronic kidney disease, or unspecified chronic kidney disease Current Visit: Yes Status: Acute Code(s): I12.9 - HYPERTENSIVE CHRONIC KIDNEY DISEASE W STG 1-4/UNSP CHR KDNY (3) Influenza Current Visit: Yes Status: Acute Code(s): J11.1 - FLU DUE TO UNIDENTIFIED INFLUENZA VIRUS W OTH RESP MANIFEST (4) Type 2 diabetes mellitus with diabetic chronic kidney disease Current Visit: Yes Status: Acute Code(s): E11.22 - TYPE 2 DIABETES MELLITUS W DIABETIC CHRONIC KIDNEY DISEASE (5) Fever Current Visit: Yes Status: Acute Assessment & Plan: (1) Pyelonephritis Current Visit: Yes Status: Acute Assessment & Plan: - Ceftriaxone - pain control- morphine and tylenol - IVF - CBC, CMP reviewed - Temp of 99 all night - UC gram negative- sensitivity pending. - BC x2 pending Code(s): N12 - TUBULO-INTERSTITIAL NEPHRITIS, NOT SPCF ACUTE OR CHRONIC (2) Hypertensive chronic kidney disease with stage 1 through stage 4 chronic kidney disease, or unspecified chronic kidney disease Current Visit: Yes Status: Acute Assessment & Plan: - at baseline renal function - CMP reviewed Code(s): I12.9 - HYPERTENSIVE CHRONIC KIDNEY DISEASE W STG 1-4/UNSP CHR KDNY (3) Influenza Current Visit: Yes Status: Acute Code(s): J11.1 - FLU DUE TO UNIDENTIFIED INFLUENZA VIRUS W OTH RESP MANIFEST (4) Type 2 diabetes mellitus with diabetic chronic kidney disease Current Visit: Yes Status: Acute Assessment & Plan: Diabetes with some proteinuria - ADA diet with FSBS qAC/HS - Monitor blood sugars - A1C- 5.48- controlled Code(s): E11.22 - TYPE 2 DIABETES MELLITUS W DIABETIC CHRONIC KIDNEY DISEASE (5) Fever Current Visit: Yes Status: Acute Assessment & Plan: - temp 103.7 at 0357 - Blood cultures x2 - Tylenol PRN 05/31 - temp 99 all night Code(s): R50.9 - FEVER, UNSPECIFIED (6) Sinus congestion Current Visit: Yes Status: Acute Assessment & Plan: - Flonase - Claritin (7) Neuropathy Current Visit: Yes Status: Chronic Assessment & Plan: - continue lyrica VTE: Heparin PPI: Protonix Next of KIN: Spouse Haroldo [phone] D/C plan: 1-2 days Code status: Full Code(s): G62.9 - POLYNEUROPATHY, UNSPECIFIED
[2024-05-31] MEDS: Zofran 4 MG/2 ML VIAL IV PRN (14:06)
[2024-05-31] MEDS: Lyrica 50MG PO SCH (21:06)
[2024-05-31] MEDS: Zocor 10MG PO SCH (21:07)
[2024-05-31] MEDS: CLARITIN 10 MG PO SCH (21:07)
[2024-05-31] MEDS ORDERED: NON-FORMULARY ITEM (Atorvastatin Calcium [Atorvastatin Calcium] 10 MG Tablet) PO SCH (22:00)
[2024-05-31] MEDS ORDERED: NON-FORMULARY ITEM (Omeprazole [Omeprazole] 40 MG Capsule.Dr) PO SCH (22:00)
[2024-06-01 05:56] VITALS: PULSE 83
[2024-06-01 06:02] LABS: Hematocrit 35.6 % (34.1-44.9); Mean Cell Volume 87.9 fL (79.4-94.8); Mean Corpuscular Hemoglobin 29.6 pg (25.6-32.2); Mean Corpuscular Hgb Concent. 33.7 g/dL (32.2-35.5); Mean Platelet Volume 10.2 fL (9.4-12.3); Platelet Count 171 x10^3/uL (182-369); Red Blood Count 4.05 x10^6/uL (3.93-5.22); Red Cell Distribution Width 13.4 % (11.7-14.4); White Blood Count 6.4 x10^3/uL (3.98-10.04)
[2024-06-01 06:38] LABS: ALBUMIN 3.5 g/dL (3.5-5.0); ANION GAP 10.7 MEQ/L (5-15); BILIRUBIN,TOTAL 0.4 mg/dL (0.2-1.3); Calcium 8.8 mg/dL (8.4-10.2); Creatinine 1 0.64 mg/dL (0.52-1.04); EST GLOMERULAR FILTRATION RATE 108.3 ML/MIN; Potassium 3.4 mmol/L (3.5-5.1); Total Protein 6.3 g/dL (6.3-8.2)
[2024-06-01 08:29] VITALS: BP 146/84; RESP 22; TEMP 97.9; O2SAT 97
[2024-06-01] MEDS: Klor Con PO ONE (09:34)
[2024-06-01] MEDS ORDERED: [UNRECOGNIZED DRUG - OTHER] PO SCH (10:00)
[2024-06-01] MEDS ORDERED: NON-FORMULARY ITEM (Hydrochlorothiazide [Hydrochlorothiazide] 12.5 MG Capsule) PO SCH (10:00)
[2024-06-01] MEDS ORDERED: DAPAGLIFLOZIN PO SCH (10:00)
[2024-06-01] MEDS ORDERED: NON-FORMULARY ITEM (Folic Acid [Folic Acid] 0.4 MG Tablet) PO SCH (10:00)
[2024-06-01] MEDS ORDERED: NON-FORMULARY ITEM (Mecobalamin [B12 Active] 1,000 MCG Tab.Chew) PO SCH (10:00)
[2024-06-01] MEDS ORDERED: METFORMIN HCL PO SCH (10:00)
--- NOTE | 2024-06-01 10:18 | PCM.DS ---
Discharge Summary Date of Admission: 05/30/24 01:28 Date of Discharge: 06/01/24 Admitting Physician: DEBBIE WEBSTER MD Primary Care Provider: KIM SCHMITZ Allergies Allergies No Known Drug Allergies Allergy (Verified 05/30/24 02:11) Hospital Summary - Hospital Course Hospital Course: 05/30/24 Ms. De Paz is a 49-year-old female with a medical history of hypertension, diabetes, and a recent bout of influenza A, who presented to the hospital with complaints of fever, chills, body aches, and persistent right-sided back pain. She had been diagnosed with a UTI and treated with antibiotics a week prior. Initial labs revealed an elevated WBC count of 10.9k. She tested negative for flu, COVID, and RSV, but a CT scan of the chest and abdomen showed right-sided pyelonephritis. She denied chest pain, shortness of breath, nausea, vomiting, diarrhea, dysuria, hematuria, or urgency. Today she is resting in bed, in no apparent distress. She reported feeling unwell with a temperature of 103.7F at 0357. Her WBC count had slightly improved to 10.7k, but she continued to experience right-sided back pain. She was continued on Rocephin for acute nara lonephritis. 05/31/24 Pt resting in bed. She continues to not feel well today. She has had a temp of 99 all night. Urine culture gram negative and sensitivity pending. BC x2 pending. WBC up at 11.6. Continue ceftriaxone for UTI. Pt c/o right ear pain and appears to have sinus pressure so allergy medication and flonase started. Continue IVF. She continues to c/O right lower back pain in region of kidney. She denies CP, SOB, abd. pain, N/V/D. 06/01/24 Pt resting in bed. She states she feels better today and is ready to d/c. K+ 3.4 and replaced. WBC ok today. Back pain resolved. UC + e-coli and harrington sensitive. Will D/C with PO antibiotic. BC x2 negative. No fever overnight. She denies CP, SOB, abd. pain, N/V/D. - Vitals & Intake/Output Vital Signs: Vital Signs Temperature 97.9 F 06/01/24 08:00 Pulse Rate 83 06/01/24 08:00 Respiratory Rate 22 06/01/24 08:00 Blood Pressure 146/84 06/01/24 08:00 O2 Sat by Pulse Oximetry 97 06/01/24 08:00 Intake & Output: Intake & Output 05/29/24 05/30/24 05/31/24 06/01/24 11:59 11:59 11:59 11:59 Intake Total 120 840 980 Output Total 1200 1300 1600 Balance -1818 -249 -340 Weight 62.8 kg - Lab Result Diagrams: 06/01/24 05:52 06/01/24 05:52 Lab Results-Last 24 Hrs: Lab Results-Last 24 Hours 05/31/24 05/31/24 05/31/24 Range/Units 11:35 17:18 22:08 WBC (3.98-10.04) x10^3/uL RBC (3.93-5.22) x10^6/uL Hgb (11.2-15.7) g/dL Hct (34.1-44.9) % MCV (79.4-94.8) fL MCH (25.6-32.2) pg MCHC (32.2-35.5) g/dL RDW (11.7-14.4) % Plt Count (182-369) x10^3/uL MPV (9.4-12.3) fL Sodium (135-145) mmol/L Potassium (3.5-5.1) mmol/L Chloride (98-107) mmol/L Carbon Dioxide (22-30) mmol/L Anion Gap (5-15) MEQ/L BUN (7-17) mg/dL Creatinine (0.52-1.04) mg/dL Estimated GFR ML/MIN Glucose (74-106) mg/dL POC Glucometer 80 118 H 133 H (74 to 106) mg/dL Calcium (8.4-10.2) mg/dL Total Bilirubin (0.2-1.3) mg/dL AST (14-36) U/L ALT (0-35) U/L Alkaline Phosphatase (38-126) U/L Serum Total Protein (6.3-8.2) g/dL Albumin (3.5-5.0) g/dL 06/01/24 06/01/24 06/01/24 Range/Units 05:52 05:52 07:25 WBC 6.4 (3.98-10.04) x10^3/uL RBC 4.05 (3.93-5.22) x10^6/uL Hgb 12.0 (11.2-15.7) g/dL Hct 35.6 (34.1-44.9) % MCV 87.9 (79.4-94.8) fL MCH 29.6 (25.6-32.2) pg MCHC 33.7 (32.2-35.5) g/dL RDW 13.4 (11.7-14.4) % Plt Count 171 L (182-369) x10^3/uL MPV 10.2 (9.4-12.3) fL Sodium 139 (135-145) mmol/L Potassium 3.4 L (3.5-5.1) mmol/L Chloride 104 (98-107) mmol/L Carbon Dioxide 28 (22-30) mmol/L Anion Gap 10.7 (5-15) MEQ/L BUN 10 (7-17) mg/dL Creatinine 0.64 (0.52-1.04) mg/dL Estimated GFR 108.3 ML/MIN Glucose 88 (74-106) mg/dL POC Glucometer 97 (74 to 106) mg/dL Calcium 8.8 (8.4-10.2) mg/dL Total Bilirubin 0.40 (0.2-1.3) mg/dL AST 26 (14-36) U/L ALT 26 (0-35) U/L Alkaline Phosphatase 101 (38-126) U/L Serum Total Protein 6.3 (6.3-8.2) g/dL Albumin 3.5 (3.5-5.0) g/dL Micro Results-Entire Visit: Microbiology 05/30/24 23:00 Urine Culture - Final Clean Catch Midstream <10K NORMAL SKIN RODGER PROBABLE SKIN CONTAMINANT 05/29/24 22:21 Urine Culture - Final Urine, Void Escherichia Coli 05/30/24 08:31 Blood Culture - Preliminary Blood 05/30/24 08:26 Blood Culture - Preliminary Blood Accuchecks Date 06/01/24 Date 05/31/24 Date 05/31/24 Time 17:33 Time 12:16 - Procedures and Test Procedures and Tests throughout Hospitalization: Therapy Orders & Screens 05/30/24 01:48 Smoking Cessation Education ONCE Comment: Diagnosis: acute pyelonephritis Smoking Status: Current every day smoker How long have you smoked: 33 year Have you smoked in the past 12 months: Yes Do you dip or chew tobacco: No Discharge Exam General Appearance: no apparent distress, alert Neurologic Exam: alert, oriented x 3, cooperative, normal mood/affect, nml cerebellar function, sensation nml, No motor deficits Eye Exam: PERRL, EOMI, eyes nml inspection Ears, Nose, Throat Exam: normal ENT inspection, pharynx normal, moist mucous membranes Neck Exam: normal inspection, non-tender, supple, full range of motion Respiratory Exam: normal breath sounds, lungs clear, No respiratory distress Cardiovascular Exam: regular rate/rhythm, normal heart sounds Gastrointestinal/Abdomen Exam: soft, No tenderness, No mass Pelvic Exam: deferred Rectal Exam: deferred Back Exam: normal inspection, normal range of motion, No CVA tenderness, No vertebral tenderness Extremity Exam: normal inspection, normal range of motion Skin Exam: normal color, warm, dry Final Diagnosis/Problem List - Final Discharge Diagnosis/Problem (1) Pyelonephritis Current Visit: Yes Status: Acute Code(s): N12 - TUBULO-INTERSTITIAL NEPHRITIS, NOT SPCF ACUTE OR CHRONIC (2) Hypertensive chronic kidney disease with stage 1 through stage 4 chronic kidney disease, or unspecified chronic kidney disease Current Visit: Yes Status: Acute Code(s): I12.9 - HYPERTENSIVE CHRONIC KIDNEY DISEASE W STG 1-4/UNSP CHR KDNY (3) Influenza Current Visit: Yes Status: Acute Code(s): J11.1 - FLU DUE TO UNIDENTIFIED INFLUENZA VIRUS W OTH RESP MANIFEST (4) Type 2 diabetes mellitus with diabetic chronic kidney disease Current Visit: Yes Status: Acute Code(s): E11.22 - TYPE 2 DIABETES MELLITUS W DIABETIC CHRONIC KIDNEY DISEASE (5) Fever Current Visit: Yes Status: Acute Code(s): R50.9 - FEVER, UNSPECIFIED (6) Sinus congestion Current Visit: Yes Status: Acute (7) Neuropathy Current Visit: Yes Status: Chronic Assessment & Plan: (1) Pyelonephritis Current Visit: Yes Status: Acute Assessment & Plan: - Ceftriaxone - pain control- morphine and tylenol - IVF - CBC, CMP reviewed - Temp of 99 all night 06/01 - UC gram [id number]- harrington-sensitive - BC x2 negative - no overnight fever - CBC, CMP reviewed - WBC WNL Code(s): N12 - TUBULO-INTERSTITIAL NEPHRITIS, NOT SPCF ACUTE OR CHRONIC (2) Hypertensive chronic kidney disease with stage 1 through stage 4 chronic kidney disease, or unspecified chronic kidney disease Current Visit: Yes Status: Acute Assessment & Plan: - at baseline renal function - CMP reviewed Code(s): I12.9 - HYPERTENSIVE CHRONIC KIDNEY DISEASE W STG 1-4/UNSP CHR KDNY (3) Influenza Current Visit: Yes Status: Acute Code(s): J11.1 - FLU DUE TO UNIDENTIFIED INFLUENZA VIRUS W OTH RESP MANIFEST (4) Type 2 diabetes mellitus with diabetic chronic kidney disease Current Visit: Yes Status: Acute Assessment & Plan: Diabetes with some proteinuria - ADA diet with FSBS qAC/HS - Monitor blood sugars - A1C- 5.48- controlled Code(s): E11.22 - TYPE 2 DIABETES MELLITUS W DIABETIC CHRONIC KIDNEY DISEASE (5) Fever Current Visit: Yes Status: Acute Assessment & Plan: - temp 103.7 at 0357 - Blood cultures x2 - Tylenol PRN 05/31 - temp 99 all night 06/01 - resolved Code(s): R50.9 - FEVER, UNSPECIFIED (6) Sinus congestion Current Visit: Yes Status: Acute Assessment & Plan: - Flonase - Claritin (7) Neuropathy Current Visit: Yes Status: Chronic Assessment & Plan: - continue lyrica Code(s): G62.9 - POLYNEUROPATHY, UNSPECIFIED - Discharge Discharge Date: 06/01/24 Disposition: Home, Self-Care Condition: Stable Prescriptions: Continue Dapagliflozin/Metformin HCl [Xigduo Xr 10 mg-1,000 mg Tab] 1 tab PO DAILY Spironolactone 50 mg PO BID Folic Acid 400 mcg PO DAILY Atorvastatin Calcium 10 mg PO HS Amlodipine Besylate 5 mg PO BID Omeprazole 40 mg PO BID Mecobalamin [B12 Active] 1,000 mcg PO DAILY hydroCHLOROthiazide [Hydrochlorothiazide] 12.5 mg PO DAILY Pregabalin 50 mg [Lyrica 50MG] 150 mg PO HS Additional Instructions: USe OTC tylenol for pain if needed, follow the label directions and do not exceed daily dose. You can buy Flonase and claritin OTC if needed for sinus pres sure/pain. Follow up with: RICH JEREZ [Family Provider] -
== END 2024-06-01 11:52 | disposition home or self-care (01) | DRG 690 ==
LOC: ED 18:09 → OBSVTOIN 05-30 01:28 → MED SURG 05-30 01:28
PROVIDERS: ADMIT Internal Medicine Nephrology; ATTEND Internal Medicine Nephrology
DX: N12 Tubulo-interstitial nephritis, not specified as acute or chronic (principal); I12.9 Hypertensive chronic kidney disease with stage 1 through stage 4 chronic kidney disease, or unspecified chronic kidney disease; N18.9 Chronic kidney disease, unspecified; E11.22 Type 2 diabetes mellitus with diabetic chronic kidney disease; J11.1 Influenza due to unidentified influenza virus with other respiratory manifestations; R50.9 Fever, unspecified; R09.81 Nasal congestion; G62.9 Polyneuropathy, unspecified; N39.0 Urinary tract infection, site not specified; B96.20 Unspecified Escherichia coli [E. coli] as the cause of diseases classified elsewhere; F17.200 Nicotine dependence, unspecified, uncomplicated; Z79.899 Other long term (current) drug therapy
CPT/HCPCS: 0241U; 36415; 71045; 74177; 80053; 81001; 82570; 82947; 83036; 84156; 85025; 85027; 87040; 87077; 87086; 87186; 96374; 96375; 99285; 99291; J0696; J1644; J2270; J2405; A9270-GY

== ENCOUNTER 2025-01-20 10:22 | Emergency (ER) | payer BC ==
--- NOTE | 2025-01-20 10:36 | ERPHSYRPT ---
- History of Present Illness Time Seen by Provider: 01/20/25 10:36 Source: patient, family Exam Limitations: no limitations Physician History: This a 49-year-old white female patient arrives by private vehicle and is a patient of Dr. Dobbs with a complaint of left knee pain. Patient was working on an with machinery when she injured her left knee 2 days ago. The pain has been present in the left knee and has radiated proximally to include the left groin and left buttock. Patient has full range of motion but it hurts to ambulate. Patient felt her left knee pop when the incident occurred 2 days ago. Patient is a daily smoker of tobacco. She has a history of hypertension, hyperlipidemia, gastroesophageal reflux disease, diabetes, CVA and arthritis. Method of Injury: other (Injured at work 2 days ago) Quality: sharpness Severity of Pain-Max: moderate Severity of Pain-Current: moderate Lower Extremities Pain: knee: left Modifying Factors: Improves With: movement Associated Symptoms: popping sensation (Left knee 2 days ago), other (Can bear weight but hurts to do so) Allergies/Adverse Reactions: No Known Drug Allergies Allergy (Verified 01/20/25 10:41) Home Medications: Amlodipine Besylate 5 mg PO BID 05/30/24 [History] Atorvastatin Calcium 10 mg PO HS 05/30/24 [History] Dapagliflozin/Metformin HCl [Xigduo Xr 10 mg-1,000 mg Tab] 1 tab PO DAILY 05/30/24 [History] Mecobalamin [B12 Active] 1,000 mcg PO DAILY 05/30/24 [History] Omeprazole 40 mg PO BID 05/30/24 [History] Spironolactone 50 mg PO BID 05/30/24 [History] hydroCHLOROthiazide [Hydrochlorothiazide] 12.5 mg PO DAILY 05/30/24 [History] Pregabalin 50 mg [Lyrica 50MG] 150 mg PO HS 05/31/24 [History] Cyclobenzaprine HCl 1 tab PO DAILY 10/28/24 [History] Dicyclomine HCl 1 tab PO TID PRN 10/28/24 [History] Famotidine 20 mg [Pepcid 20 MG] 1 tab PO BID 10/28/24 [History] Meloxicam 15 mg [Meloxicam 15 MG] 1 tab PO DAILY 10/28/24 [History] Tirzepatide [Mounjaro] 7.5 mg SQ WEEKLY 01/20/25 [History] Hx Tetanus, Diphtheria Vaccination/Date Given: Yes Hx Influenza Vaccination/Date Given: No Hx Pneumococcal Vaccination/Date Given: No Travel Risk - International Travel Have you traveled outside of the country in past 3 weeks: No - Emerging Infectious Disease Are you exhibiting symptoms associated with any current EIDs: No Symptoms: Fever, Headaches/Body Aches/ - Review of Systems Constitutional: No Symptoms Eyes: No Symptoms Ears, Nose, & Throat: No Symptoms Respiratory: No Symptoms Cardiac: No Symptoms Abdominal/Gastrointestinal: No Symptoms Genitourinary Symptoms: No Symptoms Musculoskeletal: Injury (At work 2 days ago), Joint Pain (Left knee) Skin: No Symptoms Neurological: No Symptoms Psychological: No Symptoms Endocrine: No Symptoms Hematologic/Lymphatic: No Symptoms Immunological/Allergic: No Symptoms All Other Systems: Reviewed and Negative - Past Medical History Pertinent Past Medical History: Yes Neurological History: Stroke ENT History: No Pertinent History Cardiac History: High Cholesterol, Hypertension Respiratory History: No Pertinent History Endocrine Medical History: Diabetes Type II Musculoskeletal History: Arthritis GI Medical History: GERD History: No Pertinent History Psycho-Social History: No Pertinent History Female Reproductive Disorders: No Pertinent History - Past Surgical History Past Surgical History: Yes Neuro Surgical History: No Pertinent History Cardiac: No Pertinent History Respiratory: No Pertinent History Gastrointestinal: No Pertinent History Genitourinary: No Pertinent History Musculoskeletal: Orthopedic Surgery Female Surgical History: Tubal Ligation Other Surgical History: maria victoria knee. Right Rotator cuff repair. C6-C7 infusion - Social History Smoking Status: Current every day smoker How long have you smoked: 33 year Exposure to second hand smoke: Yes Drug Use: none - Social Determinants of Health Will the patient participate in the screening: Yes Do you worry about a steady place to live?: No In the past 12 months,have you had to go without utilities?: No Transportation Issues: No Has anyone in your support network made you feel unsafe?: No Have you or anyone in your house had to go w/o enough food: No - Nursing Vital Signs Nursing Vital Signs: Initial Vital Signs Temperature 97.7 F 01/20/25 10:33 Pulse Rate 89 01/20/25 10:33 Blood Pressure 132/90 01/20/25 10:33 O2 Sat by Pulse Oximetry 96 01/20/25 10:33 Pain Scale Pain Intensity 10 - Physical Exam General Appearance: no apparent distress, alert, anxiety Eyes, Ears, Nose, Throat Exam: normal ENT inspection, moist mucous membranes Neck Exam: normal inspection, non-tender, supple, full range of motion Cardiovascular/Respiratory Exam: chest non-tender, no respiratory distress Gastrointestinal/Abdominal Exam: non-tender Back Exam: normal inspection, normal range of motion, No CVA tenderness Hips Exam: right: non-tender, left: normal inspection, normal range of motion, no evidence of injury, soft tissue tenderness (Posterior hip/buttock to palpation and with movement) Legs Exam: right leg: non-tender, left leg: soft tissue tenderness (With movement), bilateral leg: normal inspection, normal range of motion, no evidence of injury Knees Exam: left knee: soft tissue tenderness (With movement and ambulating), bilateral knee: normal inspection, normal range of motion, no evidence of injury Ankle Exam: bilateral ankle: non-tender, normal inspection, normal range of motion, no evidence of injury Foot Exam: bilateral foot: non-tender, normal inspection, normal range of motion, no evidence of injury Neuro/Tendon Exam: normal sensation, normal motor functions, normal tendon functions Mental Status Exam: alert, oriented x 3, cooperative Skin Exam: normal color, warm, dry SpO2 Interpretation: normal O2 Delivery: Room Air - Course Nursing assessment & vital signs reviewed: Yes Ordered Tests: Active Orders 24 hr Category Date Time Status FEMUR Stat Exams 01/20/25 10:56 Completed KNEE (3 VIEWS) Stat Exams 01/20/25 10:56 Completed PELVIS (1 OR 2 VIEWS) Stat Exams 01/20/25 10:57 Completed - Progress Progress: pain not gone completely, re-examined Progress Note: 01/20/25 11:31 My medical decision making and the assignment of low to moderate complexity of this patient's medical issue today is based on review of the patient's past medical history, reviewed patient's medication list, reviewed patient drug allergy list, history present illness and physical findings on examination. The workup in this patient includes x-ray of the left knee, left femur and pelvis. Differential diagnosis includes but is not limited to dislocation left knee, fracture left knee, dislocation left hip, fracture left hip, pelvic ramus fracture left side 01/20/25 11:43 The following radiographic studies were interpreted by the radiologist and I reviewed the impressions: Pelvic x-ray showed degenerative changes. No acute bony, articular or soft tissue abnormalities. Left femur x-ray shows degenerative changes. No acute bony, articular or soft tissue abnormalities. Left knee x-ray shows degenerative changes. No acute bony, articular or soft tissue abnormalities. Counseled pt/family regarding: diagnosis, need for follow-up, rad results Medical Desision Making - Diagnostic Testing Diagnostic test were ordered, analyzed, and reviewed by me: Yes Radiological Interpretation: Reviewed by me, Teleradiologist Report - Risk of complications Low Risk: Low risk of morbidity from additional dx testing or treatment The pt has a mod risk of morbidity or mortality based on: Need for prescription drug management - Departure Departure Disposition: Home Clinical Impression: Left knee pain, Left groin pain Condition: Stable Critical Care Time: No Referrals: DELISA DOBBS MD [Primary Care Provider, [facility]] - Follow up/PCP as directed Additional Instructions: Alternate ice and heat to tender areas 3 times a day for the next 72 hours. Do not apply ice or heat directly to the skin. Take your medications as prescribed. Call your primary care provider today, 01/20/2025, to make arrangements to be seen in the next 3 to 5 days for further evaluation and management. Hold your meloxicam while taking the steroids. Also, monitor your blood sugar closely while taking the steroids. You may add Tylenol 650 mg orally 4 times a day to help with pain control. Prescriptions: Prednisone 10 mg [Deltasone 10 mg] 10 mg PO TID #12 tablet Orphenadrine Citrate 100 mg [Norflex 100 MG Tablet] 100 mg PO BID #10 tab
[2025-01-20 10:41] VITALS: PULSE 89; TEMP 97.7
--- NOTE | 2025-01-20 11:39 | XRAY ---
Indication: Pain following injury. Comparison: None Single AP pelvis demonstrates osteopenia, moderate bilateral lumbosacral junction degenerative facet hypertrophy, and tiny spurring left greater trochanter. No acute bony, articular, or soft tissue abnormalities.
--- NOTE | 2025-01-20 11:39 | XRAY ---
Indication: Pain following injury. Comparison: None 3 view left knee demonstrates osteopenia, mild/moderate tricompartmental degenerative changes greatest medial compartment, and small posterior fabella. No acute bony, articular, or soft tissue abnormalities.
--- NOTE | 2025-01-20 11:39 | XRAY ---
Indication: Pain following injury. Comparison: None 2 view left femur demonstrates osteopenia, tiny spurring greater trochanter, and moderate knee degenerative arthropathy reported separately. No acute bony, articular, or soft tissue abnormalities.
[2025-01-20 11:43] VITALS: BP 140/85; O2SAT 97
== END 2025-01-20 12:22 | disposition home or self-care (01) ==
LOC: ED 10:22
DX: M25.562 Pain in left knee (principal); R10.22 Pelvic and perineal pain left side; I10 Essential (primary) hypertension; E11.9 Type 2 diabetes mellitus without complications; Z79.52 Long term (current) use of systemic steroids; Z79.84 Long term (current) use of oral hypoglycemic drugs; Z79.85 Long-term (current) use of injectable non-insulin antidiabetic drugs; Z79.899 Other long term (current) drug therapy; Z72.0 Tobacco use